=== PATIENT | female | born 1975 | race Caucasian/White ===

== ENCOUNTER → 2021-09-27 | Day surgery (SDC) | payer BC ==
[2021-09-27 13:00] VITALS: BP 122/73
== END | disposition home or self-care (01) ==
LOC: SURG 12:52
PROVIDERS: ATTEND Anesthesiology
DX: M50.30 Other cervical disc degeneration, unspecified cervical region (principal); F32.9 Major depressive disorder, single episode, unspecified; M19.90 Unspecified osteoarthritis, unspecified site; M79.7 Fibromyalgia; M54.12 Radiculopathy, cervical region; J45.909 Unspecified asthma, uncomplicated; Z98.51 Tubal ligation status; Z98.890 Other specified postprocedural states; Z79.899 Other long term (current) drug therapy
CPT/HCPCS: 99204; G0463